=== PATIENT | male | born 1980 | race Caucasian/White ===

== ENCOUNTER 2018-05-29 16:44 | Emergency (ER) | payer SELFPAY ==
[~2018-05-29] VITALS: Ht 175.3 cm; Wt 119.3 kg
[2018-05-29] MEDS ORDERED: KETOROLAC TROMETHAMINE 60 MG/2 ML VIAL IM ONE (17:00)
[2018-05-29 18:36] VITALS: BP 160/90
== END 2018-05-29 18:40 | disposition home or self-care (01) ==
LOC: FSED 16:44
DX: M79.641 Pain in right hand (principal); S63.656A Sprain of metacarpophalangeal joint of right little finger, initial encounter; F17.210 Nicotine dependence, cigarettes, uncomplicated
CPT/HCPCS: 73130; 99283; J1885